=== PATIENT | male | born 1955 | race Caucasian/White ===

== ENCOUNTER → 2017-08-07 | Outpatient (CLI) | payer MEDICARE ==
--- NOTE | 2017-08-07 17:33 | US ---
EXAMINATION TYPE: US carotid duplex BILAT DATE OF EXAM: 08/07/2017 COMPARISON: NONE CLINICAL HISTORY: A Fib I48.91. Pt states recent vision changes EXAM MEASUREMENTS: RIGHT: Peak Systolic Velocity (PSV) cm/sec ----- Right CCA: 54.9 ----- Right ICA: 101.6 ----- Right ECA: 103.4 ICA/CCA ratio: 1.9 RIGHT: End Diastole cm/sec ----- Right CCA: 12.1 ----- Right ICA: 37.0 ----- Right ECA: 0.0 LEFT: Peak Systolic Velocity (PSV) cm/sec ----- Left CCA: 71.4 ----- Left ICA: 74.6 ----- Left ECA: 76.8 ICA/CCA ratio: 1.0 LEFT: End Diastole cm/sec ----- Left CCA: 14.7 ----- Left ICA: 28.5 ----- Left ECA: 9.8 VERTEBRALS (direction of flow): Right Vertebral: Antegrade Left Vertebral: Antegrade Rhythm: Arrhythmia No significant stenosis seen Results called to Dr. Flores at time of exam IMPRESSION: There is antegrade flow in the vertebral arteries. The images and measurements suggest l ess than 25% stenosis in both internal carotid arteries. Criteria for Assigning % of Stenosis / Diameter reduction (Estimation based on the indirect measurements of the internal carotid artery velocities (ICA PSV). 1. Normal (no stenosis)=ICA PSV < 125 cm/s: ratio < 2.0: ICA EDV<40 cm/s. 2. Less than 50% stenosis=ICA PSV < 125 cm/s: ratio < 2.0: ICA EDV<40 cm/s. 3. 50 to 69% stenosis=ICA PSV of 125 to 230 cm/s: ration 2.0 ? 4.0: ICA EDV 40-100 cm/s. 4. Greater than 70% stenosis to near occlusion= ICA PSV > 230 cm/s: ratio > 4.0: ICA EDV > 100 cm/s. 5. Near occlusion= ICA PSV velocities may be low or undetectable: variable ratio and ICA EDV. 6. Total occlusion=unable to detect flow.
== END | disposition home or self-care (01) ==
LOC: RADUSMAIN 16:34
PROVIDERS: ATTEND Family Medicine
DX: I48.91 Unspecified atrial fibrillation (principal)
CPT/HCPCS: 93880

== ENCOUNTER → 2017-08-08 | Outpatient (CLI) | payer MEDICARE ==
--- NOTE | 2017-08-08 20:07 | CT ---
EXAMINATION TYPE: CT brain wo con DATE OF EXAM: 08/08/2017 COMPARISON: NONE HISTORY: Double vision. CT DLP: 986.4 mGycm Automated exposure control for dose reduction was used. FINDINGS: Ventricles of normal size. There is no mass effect nor midline shift. There is no sign of intracrania l hemorrhage. The calvarium is intact. IMPRESSION: NEGATIVE CT SCAN OF THE BRAIN. MINIMAL ETHMOID SINUSITIS NOTED. NO EVIDENCE OF ORBITAL MASS.
== END | disposition home or self-care (01) ==
LOC: RADCTMAIN 18:43
PROVIDERS: ATTEND Family Medicine
DX: H53.2 Diplopia (principal); I63.9 Cerebral infarction, unspecified; E11.9 Type 2 diabetes mellitus without complications
CPT/HCPCS: 70450

== ENCOUNTER 2017-12-22 08:35 | Day surgery (SDC) | payer MEDICARE ==
[2017-12-22 09:02] VITALS: BP 135/72; PULSE 71; RESP 18; TEMP 98.3
--- NOTE | 2017-12-22 12:30 | US ---
Discontinued abdominal wall aspiration HISTORY: Abnormal CT, T79.2XXA, draining wound Real-time ultrasound performed at the site of patient's draining tract. Correlation to CT scan from [facility] institution dated 10/16/2017 CT shows a large ventral abdominal wall hernia. Just inferiorly to the abdominal wall hernia, ultraso und scanning was performed which shows a small sinus tract as noted on CT. Following discussion of the risks and benefits of procedure, patient has elected not to undergo aspir ation of the small sinus tract. 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 C onsider general surgery consult for abdominal wall hernia and sinus tract noted on CT.
== END 2017-12-22 10:59 | disposition home or self-care (01) ==
LOC: RADPROMAIN 08:35
PROVIDERS: ATTEND Family Medicine
DX: K43.9 Ventral hernia without obstruction or gangrene (principal); T79.2XXA Traumatic secondary and recurrent hemorrhage and seroma, initial encounter; Z53.8 Procedure and treatment not carried out for other reasons
CPT/HCPCS: 76536